=== PATIENT | female | born 1965 | race Caucasian/White ===

== ENCOUNTER 2018-01-21 18:38 | Emergency (ER) | payer OTHER ==
[~2018-01-21] VITALS: Ht 162.6 cm; Wt 63.5 kg
[~2018-01-21 18:38] MED LIST: ADDERALL 15 MG15 MG PO; AMBIEN 5 MG TABL5 M1 PO; BAYER CHEWABLE81 MG; BIOTIN5 M1; CYMBALTA30 MG PO; ESTRACE0.5 MG; HYDROCHLOROTHIA25 M1 PO; HYDROCHLOROTHIA25 M2 PO; PEPCID40 MG PO; PREMARIN0.3 MG; PROTONIX40 M1 PO; PROZAC20 MG; TOPROL XL50 MG PO; TRAMADOL 50 MG50 MG PO
[2018-01-21 19:02] LABS: URINE BILIRUBIN NEGATIVE (Negative); URINE BLOOD TRACE (Negative); URINE CLARITY CLEAR; URINE COLOR YELLOW; URINE GLUCOSE-RANDOM* NEGATIVE (Negative); URINE KETONES NEGATIVE (Negative); URINE LEUKOCYTES-REFLEX NEGATIVE (Negative); URINE NITRITE-REFLEX NEGATIVE (Negative); URINE PROTEIN (DIPSTICK) NEGATIVE (Negative); URINE UROBILINOGEN 0.2 E.U./dl (0.2-1.0)
[2018-01-21 20:20] LABS: HEMATOCRIT 41.5 % (37.0-47.0); HEMOGLOBIN 14.3 gm/dL (12.0-15.0); MCH 29.2 pg (26.0-34.0); MCHC 34.3 g/dL (28.0-37.0); MCV 84.9 fL (80.0-100.0); PLATELET COUNT 398 thou/uL (150-400); RBC 4.89 mil/uL (4.20-5.00); RDW 12.8 % (10.5-14.5); WBC 23.1 thou/uL (4.0-11.0)
[2018-01-21 20:29] LABS: CALCIUM 9.5 mg/dL (8.5-10.1); CREATININE 1.1 mg/dL (0.6-1.0); POTASSIUM 3.5 mmol/L (3.5-5.1)
[2018-01-21 20:35] LABS: ALBUMIN 3.1 g/dL (3.4-5.0); TOTAL PROTEIN 8.3 g/dL (6.4-8.2)
[2018-01-21 20:49] LABS: ABSOLUTE NEUTROPHILS 18.7 thou/uL (1.4-8.2)
== END 2018-01-21 23:00 | disposition short-term general hospital (02) ==
LOC: ER 18:38
PROVIDERS: Emergency Medicine; Nurse Practitioner Family
DX: K26.5 Chronic or unspecified duodenal ulcer with perforation (principal); K57.92 Diverticulitis of intestine, part unspecified, without perforation or abscess without bleeding; I10 Essential (primary) hypertension; K21.9 Gastro-esophageal reflux disease without esophagitis; F32.9 Major depressive disorder, single episode, unspecified; Z90.710 Acquired absence of both cervix and uterus; Z88.8 Allergy status to other drugs, medicaments and biological substances

== ENCOUNTER → 2019-05-02 | Outpatient (CLI) | payer OTHER | LOC: CAT 07:51 | DX: Z13.6 Encounter for screening for cardiovascular disorders (principal); E78.00 Pure hypercholesterolemia, unspecified; I25.10 Atherosclerotic heart disease of native coronary artery without angina pectoris ==